=== PATIENT | female | born 2000 | race Hispanic/Latino ===

== ENCOUNTER 2023-02-11 13:36 | Emergency (ER) | payer SELFPAY ==
--- OUTSIDE RECORDS SUMMARY | 2023-02-11 13:40 | XMS REPORT | Continuity of Care Document ---
:2002 Author Organization [facility] t Address [address] [facility]. [address] [place] [address] Care Team Providers Name Role Phone G_Nilo Attending Clinician Unavailable PATEL_NILESH Attending Clinician Unavailable JUILAN PERSAUD Attending Clinician Unavailable IHDE_G Attending Clinician Unavailable ANDIE DRISCOLL Attending Clinician Unavailable JAZIEL PHILLIPS Attending Clinician Unavailable JAZIEL CORCORAN Attending Clinician Unavailable Leia Borges MD Attending Clinician MARIA ISABEL PANIAGUA Attending Clinician Unavailable JYOTSNA MORA Attending Clinician Unavailable KIANNA MERRILL Attending Clinician Unavailable Raju_P Attending Clinician Unavailable RICARDO ROA Attending Clinician Unavailable Mickey Amado Attending Clinician Unavailable SHANI NICOLE Attending Clinician Unavailable LEIA BORGES Admitting Clinician Unavailable G_Pappakylah Admitting Clinician Unavailable PATEL_NILESH Admitting Clinician Unavailable IHDE_G Admitting Clinician Unavailable ANDIE DRISCOLL Admitting Clinician Unavailable JAZIEL CORCORAN Admitting Clinician Unavailable Leia Borges MD Admitting Clinician Raju_P Admitting Clinician Unavailable Mickey Amado Admitting Clinician Unavailable Payers Payer Name Policy Type Policy Number Effective Date Expiration Date Kylah burciaga [facility] [id number] 2019 CHOICE MEDICAID 00:00:00 [facility] [id number] 2019 CHOICE (MEDICAID 00:00:00 REPLACEMENT - HMO) [facility] [id number] 2019 CHOICE (HMO) 00:00:00 [place] - [id number] [facility] - TRADITIONAL [facility] [place] [id number] [facility] (MED[place]ID [place]) [place] [facility] - [id number] [facility] ([facility]) Problems Condition Condition Condition Status Onset Resolution Last Treating Co mments Source Name Details Category Date Date Treatment Clinician Date Mixed Mixed Problem Active 2019-04 [place] anxiety Anxiety 0-14 da and and 00:00: Medical depressive Depressive 00 Gr oup disorder Disorder Acute Acute Disease Active Univers left-sided left-sided 9-17 it y of low back low back 00:00: [place] pain pain 00 Medical without without Branch sciatica sciatica 36 weeks 36 weeks Disease Active Unive rs gestation gestation 9-17 ity of of of 00:00: [place] 00 [facility] Acute Acute Disease Active Univers cystitis cystitis 9-17 ity of without without 00:00: [place] hematuria hematuria 00 [facility] Generalize Generalize Problem Active M [place] d anxiety d Anxiety 3-23 da disorder Disorder 00:00: Medica l 00 Group Allergies, Adverse Reactions, Alerts Allergy Allergy Status Severity Reaction(s) Onset Inactive Treating Comm ents Source Name Type Date Date Clinician NO KNOWN Drug Active Univers ALLERGIE Class ity of S [place] [facility] Social History Social Habit Start Date Stop Date Quantity Comments Source ASSERTION 2019-05-15 University of 00:00:00 [facility] Sex Assigned At Universit y of [place] [facility] Tobacco use and 2020-01-12 2020-01-12 Never used Universit y of exposure 00:00:00 00:00:00 [facility] Alcohol intake 2020-01-12 2020-01-12 Current University 00:00:00 00:00:00 non-drinker of [facility] alcohol [place] (finding) Smoking Status Start Date Stop Date Source Never smoker [facility] Medications Ordered Filled Start Stop Current Ordering Indication Dosage Frequency Signature Comments Components Source Medication Medication Date Date Medication? Clinician (SIG) Name Name FENTanyl PF 2019- No 50ug 50 mcg, Un jesus (SUBLIMAZE 01-11 Slow IV ity o f (PF)) 13:45: 12:55 Push, [place] injection 00 :00 ONCE, 1 Medical 50 mcg dose, [facility] Branch 01/12/20 at 0845, Routine acetaminoph 2019- Yes 650mg 650 mg, Un jesus en 01-11 Oral, ity of (TYLENOL) 12:42: Q6HPRN, [place] tablet 650 31 Starting Medic al mg [facility] 01/12/20 at 0742, Until Discontinu ed, Routine, Pain (scale 1-3) cefTRIAXone 2019- Yes 1000mg 1,000 mg, Univers (ROCEPHIN) 01-11 IV ity of 1,000 mg in 12:15: Piggyback, [place] NaCl 0.9% 00 Q24H ABX, Medic al (NS) 50 mL First dose [facility] MINI-BAG on Maggy 01/12/20 at 0715, Until Discontinu ed, 50 mL
R nigel for Anti-Infec tive: Empiric Therapy for Suspected Infection< br>Empiric Therapy Site: Urine
D uration of therapy: 72 hours lactated 2019-0 Yes 1000mL at 125 Unive rs ringers IV 01-11 mL/hr, ity of infusion 12:15: 1,000 mL, [place] 1[place]000 [place] 00 IV Medical Infusion, Branch CONTINUOUS , Starting Maggy 01/12/20 at 0715, Until Discontinu ed, Routine Nitrofurant 2019- 2020- No [id number] 100mg Take 1 Univers oin&Nit. 01-11 10-08 capsule by ity of Macrocryst 00:00: 04:59 mouth [place] 100 mg 00 :00 daily for Medical capsule 20 days. Branch Nitrofurant 2019- No [id number] 100mg Take 1 Univers oin&Nit. 01-11 capsule by ity of [place] 00:00: 04:59 mouth 2 Joey as 100 mg 00 :00 (two) Medical capsule times Branch daily for 7 days. cyclobenzap 2019- No 5mg Take 1 Uni vers rine 5 mg 06-11 tablet by ity of tablet 00:00: 00:00 mouth 3 [place] 00 :00 (three) Medical times Branch daily. naproxen 2019- No 250mg Take 1 Unive rs 250 mg 06-11 tablet by ity of tablet 00:00: 00:00 mouth 2 [place] 00 :00 (two) Medical times Branch daily with meals. Sprintec Sprintec No Sprintec [place] (28) 0.25 (28) 0.25 (28) 0.25 da mg-35 mcg mg-35 mcg mg-35 mcg Medical tablet Take tablet Take tablet Group 1 tablet 1 tablet Take 1 every day every day tablet by oral by oral every day route. route. by oral route. Iron Iron No Iron [place] (ferrous (ferrous (ferrous da sulfate) sulfate) sulfate) Med ical Group Wellbutrin Wellbutrin No 1 Q1D Wellbutrin [place] XL 150 mg XL 150 mg XL 150 mg da 24 hr 24 hr 24 hr Medical tablet, tablet, tablet, Group extended extended extended release release release Take 1 Take 1 Take 1 tablet tablet tablet every day every day every day by oral by oral by oral route. route. route. sulfamethox sulfamethox No sulfametho [place] azole 800 azole 800 xazole 800 da mg-trimetho mg-trimetho mg-trimeth Medical prim 160 mg prim 160 mg oprim 160 Group tablet tablet mg tablet acyclovir acyclovir No acyclovir [place] 400 mg 400 mg 400 mg da tablet TAKE tablet TAKE tablet Medical 1 TABLET BY 1 TABLET BY TAKE 1 Group MOUTH THREE MOUTH THREE TABLET BY TIMES DAILY TIMES DAILY MOUTH FOR HERPES FOR HERPES THREE TIMES DAILY FOR HERPES Ativan 1 mg Ativan 1 mg No 1 Q8H Ativan 1 [place] tablet Take tablet Take mg tablet da 1 tablet 1 tablet Take 1 Medic al every 8 every 8 tablet Group hours by hours by every 8 oral route oral route hours by as needed. as needed. oral route as needed. doxycycline doxycycline No doxycyclin [place] hyclate 100 hyclate 100 e hyclate da mg capsule mg capsule 100 mg M edical TAKE 1 TAKE 1 capsule Group CAPSULE BY CAPSULE BY TAKE 1 MOUTH EVERY MOUTH EVERY CAPSULE BY 12 HOURS 12 HOURS MOUTH FOR FOR EVERY 12 INFECTION INFECTION HOURS FOR INFECTION Iron Iron No Iron [place] (ferrous (ferrous (ferrous da sulfate) sulfate) sulfate) Med ical Group metronidazo metronidazo No metronidaz [place] le 500 mg le 500 mg ole 500 mg da tablet TAKE tablet TAKE tablet Medical 1 TABLET BY 1 TABLET BY TAKE 1 Group MOUTH TWICE MOUTH TWICE TABLET BY DAILY DAILY MOUTH TWICE DAILY paroxetine paroxetine No 1 Q1D paroxetine [place] 20 mg 20 mg 20 mg da tablet Take tablet Take tablet Medical 1 tablet 1 tablet Take 1 Group every day every day tablet by oral by oral every day route. route. by oral route. Wellbutrin Wellbutrin No 1 Q1D Wellbutrin [place] XL 150 mg XL 150 mg XL 150 mg da 24 hr 24 hr 24 hr Medical tablet, tablet, tablet, Group extended extended extended release release release Take 1 Take 1 Take 1 tablet tablet tablet every day every day every day by oral by oral by oral route. route. route. Ativan 1 mg Ativan 1 mg No 1 Q8H Ativan 1 [place] tablet Take tablet Take mg tablet da 1 tablet 1 tablet Take 1 Medic al every 8 every 8 tablet Group hours by hours by every 8 oral route oral route hours by as needed. as needed. oral route as needed. escitalopra escitalopra No escitalopr [place] m 10 mg m 10 mg am 10 mg da tablet tablet tablet Medical Group famotidine famotidine No famotidine [place] 20 mg 20 mg 20 mg da tablet tablet tablet Medical Group pantoprazol pantoprazol No pantoprazo [place] e 40 mg e 40 mg le 40 mg da tablet,rebecca tablet,rebecca tablet,del Medical yed release yed release ayed G roup release sertraline sertraline No sertraline [place] 100 mg 100 mg 100 mg da tablet Take tablet Take tablet Medical 1 tablet 1 tablet Take 1 Group every day every day tablet by oral by oral every day route. route. by oral route. sertraline sertraline No sertraline [place] 25 mg 25 mg 25 mg da tablet Take tablet Take tablet Medical 1 tablet 1 tablet Take 1 Group every day every day tablet by oral by oral every day route for route for by oral 30 days. 30 days. route for 30 days. sertraline sertraline No sertraline [place] 50 mg 50 mg 50 mg da tablet Take tablet Take tablet Medical 3 tablets 3 tablets Take 3 July up every day every day tablets by oral by oral every day route. route. by oral route. Ativan 1 mg Ativan 1 mg No 1 Q8H Ativan 1 [place] tablet Take tablet Take mg tablet da 1 tablet 1 tablet Take 1 Medic al every 8 every 8 tablet Group hours by hours by every 8 oral route oral route hours by as needed. as needed. oral route as needed. Vital Signs Vital Name Observation Time Observation Value Comments Source BP Diastolic 2022-10-14 00:00:00 76 mm[facility]Hg] [facility] Height 2022-10-14 00:00:00 62 [in_i] [facility] BMI (Body Mass 2022-10-14 00:00:00 34.3 kg/m2 [facility] Medical Index) Group BP Systolic 2022-10-14 00:00:00 122 mm[Hg] [facility] Body Weight 2022-10-14 00:00:00 187.6 [lb_av] [facility] BP Diastolic 2022-05-06 00:00:00 78 mm[Hg] [facility] Height 2022-05-06 00:00:00 62 [in_i] [facility] BMI (Body Mass 2022-05-06 00:00:00 35 kg/m2 [facility] Medical Index) Group BP Systolic 2022-05-06 00:00:00 108 mm[Hg] [facility] Body Weight 2022-05-06 00:00:00 191.3 [lb_av] [facility] BP Diastolic 2020-07-05 00:00:00 60 mm[Hg] [facility] Height 2020-07-05 00:00:00 62 [in_i] [facility] BMI (Body Mass 2020-07-05 00:00:00 37.3 kg/m2 [facility]) Group BP Systolic 2020-07-05 00:00:00 120 mm[Hg] [facility] Body Weight 2020-07-05 00:00:00 204 [lb_av] [facility] BP Diastolic 2020-03-16 00:00:00 84 mm[Hg] [facility] Height 2020-03-16 00:00:00 62 [in_i] [facility] BMI (Body Mass 2020-03-16 00:00:00 37.4 kg/m2 [facility]) Group BP Systolic 2020-03-16 00:00:00 130 mm[Hg] [facility] Body Weight 2020-03-16 00:00:00 204.6 [lb_av] [facility] BP Diastolic 2020-03-02 00:00:00 76 mm[Hg] [facility] Height 2020-03-02 00:00:00 62 [in_i] [facility] BMI (Body Mass 2020-03-02 00:00:00 37.7 kg/m2 [facility]) Group BP Systolic 2020-03-02 00:00:00 119 mm[Hg] [facility] Body Weight 2020-03-02 00:00:00 206 [lb_av] [facility] BP Diastolic 2020-02-07 00:00:00 80 mm[Hg] [facility] Height 2020-02-07 00:00:00 62 [in_i] [facility] BMI (Body Mass 2020-02-07 00:00:00 38 kg/m2 [facility]) Group BP Systolic 2020-02-07 00:00:00 130 mm[Hg] [facility] Body Weight 2020-02-07 00:00:00 207.7 [lb_av] [facility] Heart rate 2020-01-12 16:30:00 85 /min [facility] ty [facility] [place] [facility] Oxygen saturation in 2020-01-12 16:30:00 100 /min [facility] Arterial blood by [facility] Pulse oximetry Branch Systolic blood 2020-01-12 16:00:00 133 mm[Hg] Seth oliveira of pressure [facility] Diastolic blood 2020-01-12 16:00:00 81 mm[Hg] Unive rsity of pressure [facility] Body temperature 2020-01-12 12:10:00 36.89 Shazia Univ ersity [facility] Respiratory rate 2020-01-12 12:10:00 16 /[facility] 2020-01-12 10:21:00 157.5 cm Universi ty of [place] [facility] Body weight 2020-01-12 10:21:00 99.791 kg Universi ty [facility] BMI 2020-01-12 10:21:00 40.24 kg/m2 Universi ty [facility] Heart rate 2020-01-12 16:30:00 85 /min Universi ty [facility] Oxygen saturation in 2020-01-12 16:30:00 100 /min [facility] Arterial blood by [facility] Pulse oximetry Branch Systolic blood 2020-01-12 16:00:00 133 mm[Hg] Univer sity of pressure [facility] Diastolic blood 2020-01-12 16:00:00 81 mm[Hg] Unive rsity of pressure [facility] Body temperature 2020-01-12 12:10:00 36.89 [facility] 2020-01-12 12:10:00 16 /min [facility] height 2020-01-12 10:21:00 157.5 cm Universi ty of [place] [facility] Body weight 2020-01-12 10:21:00 99.791 kg Universi ty [facility] BMI 2020-01-12 10:21:00 40.24 kg/m2 Universi ty [facility] BP Diastolic 2020-01-06 00:00:00 84 mm[Hg] [facility] Height 2020-01-06 00:00:00 62 [in_i] [facility] BMI (Body Mass 2020-01-06 00:00:00 40.3 kg/m2 [facility] Group BP Systolic 2020-01-06 00:00:00 120 mm[Hg] [facility] Body Weight 2020-01-06 00:00:00 220.6 [lb_av] [facility] BP Diastolic 2019-12-14 00:00:00 73 mm[Hg] [facility] Height 2019-12-14 00:00:00 62 [in_i] [facility] BMI (Body Mass 2019-12-14 00:00:00 40.4 kg/m2 [facility] BP Systolic 2019-12-14 00:00:00 126 mm[Hg] [facility] Body Weight 2019-12-14 00:00:00 220.8 [lb_av] [facility] BP Diastolic 2019-12-12 00:00:00 88 mm[Hg] [facility] Height 2019-12-12 00:00:00 62 [in_i] [facility] BMI (Body Mass 2019-12-12 00:00:00 40.2 kg/m2 [facility] Group BP Systolic 2019-12-12 00:00:00 130 mm[Hg] [facility] Body Weight 2019-12-12 00:00:00 219.8 [lb_av] [facility] BP Diastolic 2019-10-18 00:00:00 68 mm[Hg] [facility] Height 2019-10-18 00:00:00 62 [in_i] [facility] BMI (Body Mass 2019-10-18 00:00:00 36.6 kg/m2 [facility] BP Systolic 2019-10-18 00:00:00 128 mm[Hg] [facility] Body Weight 2019-10-18 00:00:00 200.2 [lb_av] [facility] BP Diastolic 2019-09-20 00:00:00 63 mm[Hg] [facility] Height 2019-09-20 00:00:00 62 [in_i] [facility] BMI (Body Mass 2019-09-20 00:00:00 36.3 kg/m2 [facility] Group BP Systolic 2019-09-20 00:00:00 114 mm[Hg] [facility] Body Weight 2019-09-20 00:00:00 198.2 [lb_av] [facility] Procedures Procedure Date / Time Performing Clinician Source Performed US RETROPERITONEAL 2020-01-12 14:00:00 Fish, Leia [facility] [place] COMPLETE Medical Branch COMP. METABOLIC PANEL 2020-01-12 11:15:00 Leia Borges [facility] ([id number]) Medical Branch CBC WITH DIFF 2020-01-12 11:15:00 Jony Leia Fortuna o f [facility] ADC CLC OR LCC ONLY - WET 2020-01-12 11:15:[address] [facility] COVID-19 (ID NOW RAPID 2020-01-12 10:17:[address] [facility] TESTING) Medical Branch US, obstetric, limited 2020-01-06 00:00:00 [facility] ULTRASOUND REPEAT 2019-12-12 00:00:00 [facility] unlisted imaging order 2019-11-30 00:00:00 [facility] unlisted imaging order 2019-10-18 00:00:00 [facility] ULTRASOUND, 2019-08-22 00:00:00 [facility] UTERUS REAL TIME WITH Group IMAGE DOC, AND MATERNAL EVAL PLUS DETAILED ANATOMIC EXAMINATION, TRANSABDOMINAL APPROACH; SINGLE OR FIRST GESTATION US, obstetric, limited 2019-07-18 00:00:00 [facility] Plan of Care Planned Activity Planned Date Details Comments Source Diagnostic Test 2022-05-06 test, [facility] Pending 00:00:00 urine [code = Group test, urine] Instructions [facility] Encounters Start End Encounter Admission Attending Care Care Encounter Source Date/Time Date/Time Type Type Clinicians Facility Department ID 2021-02-22 Outpatient P [facility] [id number] Univers 18:06:[facility] 2021-02-22 Outpatient P [facility] [id number] Univers 17:58:52 [facility] 2023-01-14 2023-01-14 Outpatient G_Pappas [facility]G [id number] [place] 00:00:00 00:00:00 0920 [facility] 2022-12-11 2022-12-11 Outpatient G_Pappas MMG MMG [id number] [place] 00:00:00 00:00:00 0817 [facility] 2022-11-06 2022-11-06 Outpatient G_Pappas MMG MMG [id number] [place] 00:00:00 00:00:00 0713 [facility] 2022-10-14 2022-10-14 Outpatient G_Pappas MMG MMG [id number] [place] 00:00:00 00:00:00 0620 [facility] 2022-10-14 2022-10-14 Nathalie MMG [place] - [id number] M atagor 00:00:00 00:00:[address] [facility]-: [address] [address] , Ph. [phone] 2022-06-06 2022-06-06 Outpatient PATEL_NILES [facility] [id number] [place] 00:00:00 00:00:00 [facility] [address] [facility] 2022-05-21 2022-05-21 Emergency ER HUNG [facility] [id number] [place] 12:53:00 14:30:00 JULIAN -[id number] [facility] 2022-05-16 2022-05-16 Outpatient PATEL_NILES [facility] [id number] [place] 00:00:00 00:00:00 H [id number] [facility] 2022-05-06 2022-05-06 Outpatient G_Pappas MMG [facility] [id number] [place] 00:00:00 00:00:00 0110 [facility] 2022-05-06 2022-05-06 Jaziel MM [place] - [id number] M atagor 00:00:00 00:00:00 Discovery alexander Corcoran MD: [address] [place] [address] , Ph. [phone] 2020-11-02 2020-11-02 [place] [id number] [place] 12:21:00 12:21:00 0709 [facility] 2020-10-31 2020-10-31 Outpatient IHDE_G MMG MMG [id number] [place] 02:57:00 02:57:00 0707 [facility] 2020-07-05 2020-07-05 Enrique IHDE_G [place]G [place] - [id number] [place] 00:00:00 00:00:00 Jerome Schmidt 0311 alexander Khalil MD: [address], [place] [address] , Ph. [phone] 2020-06-21 2020-06-22 Inpatient ER AMERICO, [facility] [id number] [place] 11:54:00 14:25:00 ANDIE -[id number] [facility] 2020-06-20 2020-06-20 Emergency ER PHILLIPS, [facility] [id number] [place] 09:16:00 10:39:00 JAZIEL -[id number] [facility] 2020-04-05 2020-04-05 Outpatient G_Pappas MMG MMG [id number] [place] 05:22:00 05:22:00 1210 da [facility] 2020-03-16 2020-03-16 Jaziel G_[place]appas MMG [place] - [id number] [place] 00:00:00 00:00:00 Discovery Nilo 1120 alexander MD: [address] [place] [address] - [address], [place] [address] , Ph. [phone] 2020-03-14 2020-03-14 Outpatient G_Pappas MMG MMG [id number] [place] 02:23:00 02:23:00 1118 [facility] 2020-03-07 2020-03-07 Outpatient G_Pappas MMG MMG [id number] [place] 12:32:00 12:32:00 1111 [facility] 2020-03-03 2020-03-03 Outpatient G_Pappas MMG MMG [id number] [place] 05:58:00 05:58:00 1107 [facility] 2020-03-02 2020-03-02 Jaziel G_[place]appas MMG [place] - [id number] [place] 00:00:00 00:00:00 Discovery Nilo 1106 alexander MD: [address] [facility] [address], [place] [address] , Ph. [phone] 2020-02-22 2020-02-22 Outpatient G_Pappas MMG [facility] [id number] [place] 04:32:00 04:32:00 1028 da [facility] 2020-02-07 2020-02-07 Maria Isabelmolly Baconn G_[place]as MMG [place] - 2019 [place] 00:00:00 00:00:00 Discovery Irvin 1013 da WHNP: [address] [facility] [address], [place] [address] , Ph. [phone] 2020-02-06 2020-02-06 Outpatient G_Pappas MMG [facility] 2019 [place] 02:11:00 02:11:00 1012 [facility] 2020-02-04 2020-02-04 Outpatient G_Pappas MMG MMG [id number] [place] 01:03:00 01:03:00 1010 Medical Group 2020-01-20 2020-01-20 Outpatient G_Pappas MMG G [id number] [place] 12:10:00 12:10:00 0925 Medical Group 2020-01-15 2020-01-16 Inpatient ER NILO, [facility] MOB [id number] [place] 08:43:00 09:55:00 [id number] [facility] 2020-01-12 2020-01-12 [facility] Leia Borges [facility] [id number] 05:01:00 13:25:00 Encounter [place] [id number] [place] [id number] [place] [id number] [facility] 2020-01-12 2020-01-12 [facility] Jony [facility] [id number] [facility] 05:01:00 13:25:00 Encounter Freeman [id number] ity of [place] [id number] [facility] [id number] [place] [address] Branch 2020-01-12 2020-01-12 Outpatient G_Pappas MMG MMG [id number] [place] 06:32:00 06:32:00 0917 [facility] 2020-01-06 2020-01-06 Outpatient KARINA PANIAGUA, [facility] [id number] [place] 15:03:00 15:03:00 MARIA ISABEL [id number] [facility] 2020-01-06 2020-01-06 Maria Isabel Carroll G_Pappas MMG [place] [id number] [place] 00:00:00 00:00:00 Discovery Irvin 11 da WHNP: [address] [place] [address] , Ph. [phone] 2020-01-03 2020-01-03 Emergency ER MORGAN, [facility] [id number] [place] 01:21:00 01:40:00 JYOTSNA [id number] [facility] 2019-12-15 2019-12-15 Outpatient G_Pappas MMG MMG [id number] [place] 08:58:00 08:58:00 0820 [facility] 2019-12-14 2019-12-14 [place] [id number] [place] 00:00:00 00:00:00 Discovery Nilo 0819 alexander MD: [address] [place] [address] , Ph. [phone] 2019-12-12 2019-12-12 Jaziel G_[place]appas MMG [place] - [id number] [place] 00:00:00 00:00:00 Discovery Nilo 0817 alexander MD: [address] [place] [address] , Ph. [phone] 2019-11-04 2019-11-04 Outpatient G_Pappas MMG MMG [id number] [place] 12:11:00 12:11:00 0710 [facility] 2019-10-19 2019-10-19 Outpatient G_Pappas MMG MMG [id number] [place] 08:01:00 08:01:00 06 [facility] 2019-10-18 2019-10-18 Jaziel G_[place]appas MMG [place] - [id number] [place] 00:00:00 00:00:00 Discovery Nilo 23 alexander MD: [address] [place] [address] , Ph. [phone] 2019-10-07 2019-10-07 Outpatient G_Pappas MMG MMG [id number] [place] 06:42:00 06:42:00 0612 [facility] 2019-09-21 2019-09-21 Outpatient G_Pappas MMG MMG [id number] [place] 11:15:00 11:15:00 0527 [facility] 2019-09-20 2019-09-20 Maria Isabel Carroll G_[facility] MMG [id number] [place] 00:00:00 00:00:00 Discovery Irvin 525 da WHNP: [address] [place] [address] , Ph. [phone] 2019-09-17 2019-09-17 Emergency ER DESIRAE, [facility] [id number] [place] 11:25:00 12:14:00 KIANNA [id number] [facility] 2019-08-22 2019-08-22 Maryam G_Pappas MMG [place] - [id number] [place] 00:00:00 00:00:00 Siddharth Schmidt 0427 alexander [facility] MD: [address] [place] [address] , Ph. [phone] 2019-07-18 2019-07-18 Outpatient EL NILO, [facility] [id number] [place] 15:18:00 15:18:00 JAZIEL [id number] [facility] [facility] 2019-07-18 2019-07-18 Jaziel [place] [facility] - [id number] [place] 00:00:00 00:00:00 [facility] Nilo 0323 alexander MD: Latrice [facility] [place] - [address], [place] [address] , Ph. [phone] 2019-06-27 2019-06-27 Outpatient Raju_P [facility] [id number] [place] 05:38:00 05:38:00 0302 [facility] 2019-06-21 2019-06-21 Outpatient Raju_P [facility] [id number] [place] 12:52:00 12:52:00 0225 [facility] 2019-06-13 2019-06-14 Emergency ER CRISPIN, [facility] [id number] [place] 23:46:00 05:13:00 RICARDO -[id number] [facility] 2018-02-04 2018-02-06 Inpatient ER Amado, [facility] [id number] [place] 10:34:00 13:33:00 Mickey -[id number] [facility] 2018-02-03 2018-02-03 Emergency ER MALENAE, [facility] [id number] [place] 20:25:00 21:10:00 JYOTSNA -[id number] [facility] 2018-01-26 2018-01-26 Emergency ER BONNIE, [facility] [id number] [place] 12:10:00 15:39:00 SHANI -[id number] [facility] Results Test Description Test Time Test Comments Results Result Comments Source test, urine 2022-05-06 14:35:00 Test Item Value Reference Range Interpretation Comme nts Test (test code = Test) negative [facility] W Auto Differential panel - [id number] 03:30:00 Test Item Value Reference Range Interpretation Comments white blood count (test code = 17.0 K/uL 4.0-11.5 H white blood count) red blood count (test code = red 4.72 M/uL 3.80-5.20 blood count) hemoglobin (test code = 13.8 g/dL 12-16 hemoglobin) hematocrit (test code = 43.4 % 34.0-50.0 hematocrit) MCV [Entitic volume] (test code = 91.9 fL 78-102 17357-2) mean corpuscular hemoglobin (test 29.2 pg 26.2-33.4 code = mean corpuscular hemoglobin) mean corpuscular HGB conc (test 31.8 g/dL 32-36 L code = mean corpuscular HGB conc) red cell distribution width (test 13.3 % 11.5-14.0 code = red cell distribution width) platelet count (test code = 281 K/uL 165-450 platelet count) mean platelet volume (test code = 9.8 fL 9.4-12.6 mean platelet volume) Segmented neutrophils/100 83.9 % 44.4-80.1 H leukocytes in Blood (test code = 33048-8) Immature granulocytes [#/volume] 0.1 K/uL 0.0-0.03 H in Blood (test code = 69050-5) lymphocyte% (test code = 10.3 % 10.0-50.0 lymphocyte%) mono % (test code = mono %) 5.0 % 3.0-6.0 eos % (test code = eos %) 0.1 % 0.0-3.0 Basophils/100 leukocytes in 0.2 % 0.0-1.0 Unspecified specimen (test code = 56384-7) Band form neutrophils [#/volume] 14.23 K/uL 1.5-9.5 H in Blood (test code = 63138-1) Lymphocytes [#/volume] in 1.7 K/uL 1.1-6.0 Unspecified specimen by Automated count (test code = 93051-4) mono # (test code = mono #) 0.85 K/uL 0.24-0.86 eos # (test code = eos #) 0.02 K/uL 0.04-0.36 L basophil # (test code = basophil 0.03 K/uL 0.01-0.08 #) NRBC% (test code = NRBC%) 0 /100 WBC 0-0.2 NRBC# (test code = NRBC#) 0 K/uL [facility]Different[facility] panel, method unspecified - [id number] 03:30:00NeutrophilsBandLymphocyteAtypical LymphMonocyteEosinophilBasophilAbs Neutrophil Count (Man)Abs LymphCount (Man)Abs Monocyte Count (Man)Abs Eosinophil Count (Man)Abs Basophil Count (Man)Platelet EstimatePlatelet MorphologyPoikilocytosisAnisocytosisSchistocytesTarget CellsToxic GranulationBurr CellsToxic VacuolationDifferential comment-[facility]Comprehensive [facility] 2000 panel - Serum or [id number] 03:30:00 Test Item Value Reference Range Interpretation Comments glucose (test code = glucose) 140 mg/dL 60-100 H Urea nitrogen [Mass/volume] in 5 mg/dL 5-18 Serum or Plasma (test code = 3094-0) osmolality calculated,serum (test 268 mOsm/kg 280-300 L code = osmolality calculated,serum) creatinine (test code = 0.6 mg/dL 0.57-0.87 creatinine) glomerular filtration rate (test >60.00 code = glomerular filtration rate) Urea nitrogen/Creatinine [Mass 8.3 12-20 L Ratio] in Serum or Plasma (test code = 3097-3) sodium level (test code = sodium 134 mmol/L 135-145 L level) Potassium [Moles/volume] in Body 4.4 mmol/L 3.5-5.2 fluid (test code = 2821-7) chloride level (test code = 101 mmol/L 98-108 chloride level) CO2 (test code = CO2) 23 mmol/L 21-32 anion gap (test code = anion gap) 14.4 mEq/L 12-20 calcium level (test code = 9.0 mg/dL 8.4-10.2 calcium level) total protein (test code = total 7.2 g/dL 6.0-8.0 protein) albumin (test code = albumin) 3.9 g/dL 3.2-4.5 globulin (test code = globulin) 3.3 gm/dL A/G ratio (test code = A/G ratio) 1.2 >1.0 bilirubin,total (test code = 1.0 mg/dL 0.0-1.0 bilirubin,total) AST/SGOT (test code = AST/SGOT) 159 U/L 15-32 Alanine aminotransferase 532 U/L 0-33 H [Enzymatic activity/volume] in Serum or Plasma (test code = 1742-6) Alkaline phosphatase [Enzymatic 217 U/L 0-187 H activity/volume] in Serum or Plasma (test code = 6768-6) [facility]antsLipase [Enzymatic activity/volume] in Serum or Plasma 2020-06-22 03:30:00 Test Item Value Reference Range Interpretation Comments lipase (test code = lipase) 617 U/L 13-60 H [facility] W Auto Differential panel - [id number] 03:15:00 Test Item Value Reference Range Interpretation Comments white blood count (test code = 13.9 K/uL 4.0-11.5 H white blood count) red blood count (test code = red 3.67 M/uL 3.80-5.20 L blood count) hemoglobin (test code = 11.1 g/dL 12-16 L hemoglobin) hematocrit (test code = 33.9 % 34.0-50.0 L hematocrit) MCV [Entitic volume] (test code = 92.4 fL 78-102 07538-4) mean corpuscular hemoglobin (test 30.2 pg 26.2-33.4 code = mean corpuscular hemoglobin) mean corpuscular HGB conc (test 32.7 g/dL 32-36 code = mean corpuscular HGB conc) red cell distribution width (test 14.6 % 11.5-14.0 H code = red cell distribution width) platelet count (test code = 218 K/uL 165-450 platelet count) mean platelet volume (test code = 10.2 fL 9.4-12.6 mean platelet volume) Segmented neutrophils/100 75.4 % 44.4-80.1 leukocytes in Blood (test code = 76737-9) Immature granulocytes [#/volume] 0.1 K/uL 0.0-0.03 H in Blood (test code = 96684-1) lymphocyte% (test code = 18.0 % 10.0-50.0 lymphocyte%) mono % (test code = mono %) 5.7 % 3.0-6.0 eos % (test code = eos %) 0.3 % 0.0-3.0 Basophils/100 leukocytes in 0.1 % 0.0-1.0 Unspecified specimen (test code = 31639-7) Band form neutrophils [#/volume] 10.50 K/uL 1.5-9.5 H in Blood (test code = 63832-2) Lymphocytes [#/volume] in 2.5 K/uL 1.1-6.0 Unspecified specimen by Automated count (test code = 48410-4) mono # (test code = mono #) 0.79 K/uL 0.24-0.86 eos # (test code = eos #) 0.04 K/uL 0.04-0.36 basophil # (test code = basophil 0.02 K/uL 0.01-0.08 #) NRBC% (test code = NRBC%) 0 /100 WBC 0-0.2 NRBC# (test code = NRBC#) 0 K/uL [facility] W Auto Differential panel - [id number] 07:03:00 Test Item Value Reference Range Interpretation Comments white blood count (test code = 11.7 K/uL 4.0-11.5 H white blood count) red blood count (test code = red 4.17 M/uL 3.80-5.20 blood count) hemoglobin (test code = 12.7 g/dL 12-16 hemoglobin) hematocrit (test code = 37.5 % 34.0-50.0 hematocrit) MCV [Entitic volume] (test code = 89.9 fL 78-102 67015-9) mean corpuscular hemoglobin (test 30.5 pg 26.2-33.4 code = mean corpuscular hemoglobin) mean corpuscular HGB conc (test 33.9 g/dL 32-36 code = mean corpuscular HGB conc) red cell distribution width (test 14.2 % 11.5-14.0 H code = red cell distribution width) platelet count (test code = 260 K/uL 165-450 platelet count) mean platelet volume (test code = 10.0 fL 9.4-12.6 mean platelet volume) Segmented neutrophils/100 75.0 % 44.4-80.1 leukocytes in Blood (test code = 85001-3) Immature granulocytes [#/volume] 0.1 K/uL 0.0-0.03 H in Blood (test code = 44867-0) lymphocyte% (test code = 18.5 % 10.0-50.0 lymphocyte%) mono % (test code = mono %) 5.4 % 3.0-6.0 eos % (test code = eos %) 0.5 % 0.0-3.0 Basophils/100 leukocytes in 0.2 % 0.0-1.0 Unspecified specimen (test code = 72752-1) Band form neutrophils [#/volume] 8.73 K/uL 1.5-9.5 in Blood (test code = 42731-1) Lymphocytes [#/volume] in 2.2 K/uL 1.1-6.0 Unspecified specimen by Automated count (test code = 65602-1) mono # (test code = mono #) 0.63 K/uL 0.24-0.86 eos # (test code = eos #) 0.06 K/uL 0.04-0.36 basophil # (test code = basophil 0.02 K/uL 0.01-0.08 #) NRBC% (test code = NRBC%) 0 /100 WBC 0-0.2 NRBC# (test code = NRBC#) 0 K/uL [facility]antsBlood type and Indirect antibody screen panel - Blood 2020-01-15 07:03:00 Test Item Value Reference Range Interpretation Comments Rh [Type] in Blood (test code = 4+ 27511-3) ABO and Rh group panel - Blood B positive (test code = 51381-4) [facility]antsReagin Ab [Presence] in Serum by [id number] 07:03:00 Test Item Value Reference Range Interpretation Comments Reagin Ab [Presence] in Serum by nonreactive nonreactive RPR (test code = 72764-7) [facility] InfantsHepatitis B virus surface Ag [Presence] in Serum 2020-01-15 07:03:00 Test Item Value Reference Range Interpretation Comments .hepatitis B surface antigen (test negative negative code = .hepatitis B surface antigen) [facility] InfantsUrinalysis complete panel - [id number] 05:49:00 Test Item Value Reference Range Interpretation Comments Color of Urine by Auto (test light yellow code = 58922-2) Appearance of Urine (test clear clear code = 5767-9) Glucose [Presence] in Urine negative negative by Automated test strip (test code = 69303-8) Bilirubin.total [Mass/volume] negative negative in Urine (test code = 1978-6) Ketones [Mass/volume] in negative negative Urine by Automated test strip (test code = 17767-1) Specific gravity of Urine by 1.008 1.003-1.030 Automated test strip (test code = 13244-0) blood urine (test code = =2 negative H blood urine) pH of Urine (test code = 6.500 5-9 2756-5) protein urine (UA) (test code negative negative = protein urine (UA)) Urobilinogen [Presence] in normal 0.2-1.0 Urine (test code = 57732-7) Nitrite [Presence] in Urine negative negative by Test strip (test code = 5802-4) Leukocyte esterase [Presence] =2 negative H in Urine by Automated test strip (test code = 98201-1) Erythrocytes [#/volume] in =1-5 0-5 Urine by Automated count (test code = 798-9) Leukocytes [#/area] in Urine =15-19 0-5 H sediment by Automated count (test code = 97713-3) Epithelial cells [Presence] =6-10 0-5 in Urine sediment by Light microscopy (test code = 17534-9) Bacteria identified in Urine small(1 none detect by Culture (test code = 630-4) Casts [#/area] in Urine =2-5 none detect sediment by Automated count (test code = 80403-5) urine culture added? (test already ordered code = urine culture added?) [facility]antsBacteria identified in Urine by [id number] 05:49:00Bacteria Ur [facility] 2020-01-12 14:32:53HISTORY: Flank pain. Look for kidney stones. TECHNIQUE: Both kidneys are evaluated in multiple planes with the patientin different positions. FINDINGS: RIGHT KIDNEY: Measures 10.8 x 5.5 x 4.4 cm with corticalthickness measuring up to 14-15 mm. No hydronephrosis or perinephric fluidcollection detected.Upper pole of the right kidney showed 2 small 5 to 6mm size cysts. LEFT KIDNEY: Measures 11.1 x 5.6 x 4.3 cm in size with cortical thicknessmeasuring up to 13 mm. ?No perinephric fluid collection. Quick look at the urinary bladder showed completely collapsed urinarybladder. CONCLUSIONS:1. Essentially normal bilateral renal ultrasound study.2. Incidental note of numerous small gallstones packing the lumen of thegallbladder with no associated sonographic signs of acute cholecystitis.Ncmb, Radiant Results Inft User - 01/12/2020 9:33 AM CDTHISTORY: Flank pain. Look for kidney stones.TECHNIQUE: Both kidneys are evaluated in multiple planes with the patientin different positions. FINDINGS: RIGHT KIDNEY:Measures 10.8 x 5.5 x 4.4 cm with corticalthickness measuring up to 14-15 mm. No hydronephrosis or perinephric fluidcollection detected. Upper pole of the right kidney showed 2 small 5 to 6mm size cysts.LEFT KIDNEY: Measures 11.1 x 5.6 x 4.3 cm in size with cortical thicknessmeasuring up to 13 mm. No p erinephric fluid collection.Quick look at the urinary bladder showed completely collapsed urinarybladder.CONCLUSIONS:1. Essentially normal bilateral renal ultrasound study.2. Incidental note of numerous small gallstones packing the lumen of thegallbladder with no associated sonographic signs of acute c holecystitis.[facility] AzleCOM. METABOLIC PANEL (68016) 2020-01-12 12:51:00 Test Item Value Reference Range Interpretation Comments NA (test code = 137 mmol/L 135-145 7561799558) K (test code = 3.8 mmol/L 3.5-5 5018312655) CL (test code = 108 mmol/L 98-108 0173766988) CO2 TOTAL (test code = 17 mmol/L 23-31 L 6178887173) AGAP (test code = 2-16 5231699681) BUN (test code = 8 mg/dL 7-23 1594330692) GLUCOSE (test code = 66 mg/dL 70-110 L 7568345540) CREATININE (test code = 0.60 mg/dL 0.5-1.04 1221740188) TOTAL BILI (test code = 0.8 mg/dL 0.1-1.1 5506504488) CALCIUM (test code = 9.4 mg/dL 8.6-10.6 9061325941) T PROTEIN (test code = 6.4 g/dL 6.3-8.2 3926476301) ALBUMIN (test code = 3.3 g/dL 3.5-5 L 2502124253) ALK PHOS (test code = 225 U/L 34-122 H 2079008606) ALTv (test code = 25 U/L 5-35 1742-6) AST(SGOT) (test code = 49 U/L 13-40 H 8819305980) JASON (test code = JASON) Association of Glomerular Filtration Rate (GFR) and Staging of Kidney Disease* + --+ --+ ------+| GFR (mL/min/1.73 m2) ?| With Kidney Damage ?| ?Without Kidney Damage+ --------+ --------+ +| ?>90 ?| ?Stage one ?| ? Normal ?+ ---+ ---+ -------+| ?60-89 ?| ?Stage two ?| ? Decreased GFR ? + --+ --+ ------+| ?30-59 ?| ?Stage three ?| ? Stage three ? + --+ --+ ------+| ?15-29 ?| ?Stage four ? | ? Stage four ?+ ---+ ---+ -------+| ?<15 (or dialysis) ? ?| ?Stage five ? | ? Stage five ?+ ---+ ---+ -------+ *Each stage assumes the associated GFR level has been in effect for at least three months. ?Stages 1 to 5, with or without kidney disease, indicate chronic kidney disease. Notes: Determination of stages one and two (with eGFR >59mL/min/1.73 m2) requires estimation of kidney damage for at least three months as defined by structural or functional abnormalities of the kidney, manifested by either:Pathological abnormalities or Markers of kidney damage (including abnormalities in the composition of the blood or urine or abnormalities in imaging tests). Lab Interpretation Abnormal (test code = 68316-6) [facility] CLC OR [facility] ONLY - WET [id number] 11:52:00 Test Item Value Reference Range Interpretation Comments Wet Prep (test code No Trichomonas vaginalis Bacteria = [id number]) present [facility] WITH [id number] 11:33:00 Test Item Value Reference Range Interpretation Comments WBC (test code = See_Comment [Automated 6690-2) message] The sy stem which generated this result transmitted reference range : 4.50 - 13.50 10*3/?L. The reference range was not used to interpret this result as normal/abnormal . RBC (test code = See_Comment [Automated 789-8) message] The sy stem which generated this result transmitted reference range : 4.10 - 5.10 10*6/?L. The reference range was not used to interpret this result as normal/abnormal . HGB (test code = 12.5 g/dL 12-16 718-7) HCT (test code = 37.1 % 36-45 4544-3) MCV (test code = 90.5 fL 78-95 787-2) MCH (test code = 30.5 pg 26-32 785-6) MCHC (test code = 33.7 g/dL 32-36 786-4) RDW-SD (test code = 47.8 fL 38.5-49 90683-8) RDW-CV (test code = 14.4 % 11.5-14 H 788-0) PLT (test code = See_Comment [Automated 777-3) message] The sy stem which generated this result transmitted reference range : 135 - 361 10*3/ ?L. The reference r yolie was not used to interpret this result as normal/abnormal . MPV (test code = 10.3 fL 9.4-13.3 56477-4) NRBC/100 WBC (test See_Comment [Automat ed code = 2257401246) message] The system which generated this result transmitted reference range : 0.0 - 10.0 /100 WBCs. The refer ence range was not u sed to interpret th is result as normal/abnormal . NRBC x10^3 (test code <0.01 See_Comment [Auto mated = 9198920656) message] The s ystem which generated this result transmitted reference range : 10*3/?L. The reference range was not used to interpret this result as normal/abnormal . GRAN MAT (NEUT) % 72.0 % (test code = 770-8) IMM GRAN % (test code 0.80 % = 3455226191) LYMPH % (test code = 20.1 % 736-9) MONO % (test code = 6.6 % 5905-5) EOS % (test code = 0.2 % 713-8) BASO % (test code = 0.3 % 706-2) GRAN MAT x10^3(ANC) 7.89 10*3/uL 1.5-10.3 (test code = 0329497680) IMM GRAN x10^3 (test 0.09 10*3/uL 0-0.06 H code = 7451190394) LYMPH x10^3 (test code 2.20 10*3/uL 0.7-7.4 = 731-0) MONO x10^3 (test code 0.72 10*3/uL 0-0.5 H = 742-7) EOS x10^3 (test code = <0.03 0-0.4 711-2) BASO x10^3 (test code 0.03 10*3/uL 0-0.1 = 704-7) Lab Interpretation Abnormal (test code = 67146-3) [facility]le[facility]OVID[facility] (ID NOW RAPID TESTING)2020-01-12 10:53:00 Test Item Value Reference Range Interpretation Comments SARS-CoV-2 Rapid ID NOW Not Detected Not Detected (test code = 41871-6) JASON (test code = JASON) ID NOW COVID-19 Assay is an isothermal nucleic acid amplification test intended for the qualitative detection of nucleic acid from SARS-CoV-2 viral RNA in nasopharyngeal (LUM[employer]PERATOR) specimens. It is used under Emergency Use Authorization (EUA) by FDA. The limit of detection (LOD) of the assay is 125 Genome Equivalents/mL. A positive result is indicative of the presence of SARS-CoV-2 RNA. ?Clinical correlation with patient history and other diagnostic information is necessary to determine patient infection status. A negative (Not Detected) result does not preclude SARS-CoV-2 infection. In patients with clinical symptoms and other tests that are consistent with SARS-CoV-2 infection, negative results should be treated as presumptive negative and a new specimen should be tested with alternative PCR molecular test. Invalid: Please collect a new specimen for repeat patient testing if clinically indicated. Lab Interpretation Normal (test code = 81842-9) [facility] AzleGlucose tolerance 3 hours panel - Serum or [id number] 13:20:00 Test Item Value Reference Range Interpretation Comments Results (test code = Fasting 74, 1 hr = Results) 163, 2 hr = 124 [facility] - Serum or Plasma 2019-12-15 13:20:00 Test Item Value Reference Range Interpretation Comments Results (test code = Fasting 74, 1 hr = Results) 163, 2 hr = 124 [facility] GroupGlucose [Mass/volume] in Serum or Plasma --1 hour post dose [id number] 11:47:00 Test Item Value Reference Range Interpretation Comments Results (test code = Results) 177 [facility] GroupGlucose [Mass/volume] in Serum or Plasma --1 hour post dose [id number] 11:47:00 Test Item Value Reference Range Interpretation Comments Results (test code = Results) 177 [facility] GroupGlucose [Mass/volume] in Serum or Plasma --1 hour post dose [id number] 11:47:00 Test Item Value Reference Range Interpretation Comments Results (test code = Results) 177 [facility]Urinal[facility] macro (dipstick) panel - [id number] 09:42:03 Test Item Value Reference Range Interpretation Comments Leukocytes (test code = Leukocytes) Small Nitrite (test code = Nitrite) negative Urobilinogen (test code = .2 Urobilinogen) Protein (test code = Protein) Negative pH (test code = pH) 7.0 Blood (test code = Blood) Negative Specific [place] (test code = 1.020 Specific [place]) Ketone (test code = Ketone) Negative Bilirubin (test code = Bilirubin) Negative Glucose (test code = Glucose) Negative Appearance (test code = Appearance) Clear Color (test code = Color) Yellow [facility] InfantsUrinalysis macro (dipstick) panel - [id number] 09:42:03 Test Item Value Reference Range Interpretation Comments Leukocytes (test code = Leukocytes) Small Nitrite (test code = Nitrite) negative Urobilinogen (test code = .2 Urobilinogen) Protein (test code = Protein) Negative pH (test code = pH) 7.0 Blood (test code = Blood) Negative Specific [place] (test code = 1.020 Specific [place]) Ketone (test code = Ketone) Negative Bilirubin (test code = Bilirubin) Negative Glucose (test code = Glucose) Negative Appearance (test code = Appearance) Clear Color (test code = Color) Yellow [facility]antsUrinalysis macro (dipstick) panel - [id number] 09:42:03 Test Item Value Reference Range Interpretation Comments Leukocytes (test code = Leukocytes) Small Nitrite (test code = Nitrite) negative Urobilinogen (test code = .2 Urobilinogen) Protein (test code = Protein) Negative pH (test code = pH) 7.0 Blood (test code = Blood) Negative Specific [place] (test code = 1.020 Specific [place]) Ketone (test code = Ketone) Negative Bilirubin (test code = Bilirubin) Negative Glucose (test code = Glucose) Negative Appearance (test code = Appearance) Clear Color (test code = Color) Yellow [facility]antsUrinalysis macro (dipstick) panel - [id number] 15:09:46 Test Item Value Reference Range Interpretation Comments Leukocytes (test code = Leukocytes) Small Nitrite (test code = Nitrite) negative Urobilinogen (test code = .2 Urobilinogen) Protein (test code = Protein) Negative pH (test code = pH) 7.0 Blood (test code = Blood) Negative Specific [place] (test code = 1.020 Specific [place]) Ketone (test code = Ketone) Negative Bilirubin (test code = Bilirubin) Negative Glucose (test code = Glucose) Negative Appearance (test code = Appearance) Clear Color (test code = Color) Yellow [facility]antsUrinalysis macro (dipstick) panel - [id number] 14:27:36 Test Item Value Reference Range Interpretation Comments Leukocytes (test code = Leukocytes) Negative Nitrite (test code = Nitrite) negative Urobilinogen (test code = .2 Urobilinogen) Protein (test code = Protein) Trace pH (test code = pH) 6.0 Blood (test code = Blood) Large Specific [place] (test code = 1.030 Specific [place]) Ketone (test code = Ketone) Moderate Bilirubin (test code = Bilirubin) Negative Glucose (test code = Glucose) Negative Appearance (test code = Appearance) Clear Color (test code = Color) Yellow [facility]antspregnancy test, [id number] 14:26:41 Test Item Value Reference Range Interpretation Comments Test (test code = positive Test) [facility]"
[2023-02-11 14:15] LABS: Specific Gravity 1.025 (1.005-1.030); Urine Bacteria None Seen /HPF (<20); Urine Bilirubin NEGATIVE (Negative); Urine Blood Negative (Negative); Urine Clarity Turbid (Clear); Urine Color Yellow (Yellow); Urine Glucose NEGATIVE (Negative); Urine Mucus Slight /HPF (None Seen); Urine Protein TRACE (Negative); Urine Urobilinogen Normal (Normal); Urine pH 7.5 (5.0-7.0)
[2023-02-11] MEDS ORDERED: NA CHLORIDE 0.9% 1,000 ML ONE (15:19)
[2023-02-11 15:21] LABS: Absolute Lymphocytes (CBC) 1.6 K/uL (0.7-4.9); Hematocrit 41.2 % (36.0-45.0); Lymphocytes % 11.7 % (15.3-44.8); MCV 90.9 fL (80-100); MPV 7.7 fL (7.6-11.3); Platelets 252 thou/uL (152-406); RBC Red Blood Cell Count 4.53 M/uL (3.86-4.86)
[2023-02-11 15:26] LABS: Albumin 3.9 g/dL (3.4-5.0); Bilirubin Total 0.9 mg/dL (0.2-1.0); Potassium 3.5 mEq/L (3.5-5.1); Protein, Total 8.2 g/dL (6.4-8.2)
--- NOTE | 2023-02-11 17:02 | RAD REPORT ---
EXAM DESCRIPTION: CT - Abdomen Pelvis W Contrast - 02/11/2023 3:58 pm CLINICAL HISTORY: ABD PAIN COMPARISON: No comparisons TECHNIQUE: Thin cut axial CT imaging of the abdomen and pelvis was performed following intravenous a dministration of 100 mL Isovue 300. Multiplanar reformats were generated and reviewed. All CT scans are performed using dose optimization technique as appropriate and may include automated exposure control or mA/KV adjustment according to patient size. FINDINGS: No suspicious findings in the lung bases. The liver, spleen, adrenal glands, and pancreas show no suspicious findings. Gallbladder was surgical ly removed. Symmetric renal function is seen with no hydronephrosis or suspicious renal mass. No dilated bowel loops. Long segment of wall thickening and submucosal edema along the nondistended m id ascending through distal transverse colon. Relatively short segment of proximal jejunal mild fluid distention with short-segment air-fluid level. . No free air, free fluid or inflammatory stranding. No hernia, mass or bulky lymphadenopathy. The urinary bladder is without significant finding. No suspicious bony findings. IMPRESSION: Long segment of wall thickening and submucosal edema along the nondistended mid ascendin g through distal transverse colon. Although evaluation is limited by suboptimal distention, this rais es concern for segmental colitis. Short segment of fluid distention with air-fluid levels along the proximal jejunum, may represent seq uelae of enteritis or mild ileus. Status post cholecystectomy.
--- NOTE | 2023-02-11 17:17 | EDPHYS ---
Physician Documentation [facility] Name: Zach Meraz Age: 22 yrs Sex: Female : 2000 Arrival Date: 02/11/2023 Time: 13:36 Bed 9 Private MD: ED Physician Rosemary Mendez HPI: 02/11 15:11 This 22 yrs old Female presents to ER via Ambulatory with complaints of kb Abdominal Cramping, Abdominal Pain, Nausea/Vomiting. 15:11 The patient presents to the emergency department with nausea, vomiting, diarrhea, kb abdominal pain. Onset: The symptoms/episode began/occurred last night. Possible causes: unknown. The patient has not recently seen a physician. 15:12 The symptoms are aggravated by nothing. The symptoms are alleviated by nothing. kb Associated signs and symptoms: Pertinent positives: abdominal pain, diarrhea, nausea, vomiting, Pertinent negatives: fever. Severity of symptoms: At their worst the symptoms were mild moderate in the emergency department the symptoms are unchanged. The patient has not experienced similar symptoms in the past. 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 - Social history:: Smoking status: Patient reports the use of cigarette tobacco products, denies chronic smoking, but will smoke occasionally. ROS: 15:12 Constitutional: Negative for fever, chills, and weight loss, kb 15:12 Abdomen/GI: Positive for abdominal pain, nausea, vomiting, and diarrhea, 15:12 All other systems are negative, Exam: 15:12 Constitutional: This is a well developed, well nourished patient who is awake, alert, kb and in no acute distress. Head/Face: Normocephalic, atraumatic. ENT: Moist Mucous membranes Cardiovascular: Regular rate Respiratory: Respirations even and unlabored. No increased work of breathing. Talking in full sentences Skin: Warm, dry with normal turgor. Normal color. MS/ Extremity: Pulses equal, no cyanosis. Neurovascular intact. Full, normal range of motion. Neuro: Awake and alert, GCS 15, oriented to person, place, time, and situation. Moves all extremities. Normal gait. 15:12 Abdomen/GI: Inspection: abdomen appears normal, Bowel sounds: normal, Palpation: soft, in all quadrants, mild abdominal tenderness, in the right upper quadrant, Vital Signs: 13:45 BP 121 / 75; Pulse 85; Resp 16; Temp 98.4(O); Pulse Ox 100% on R/A; Weight 88 kg; mb9 Height 5 ft. 3 in. ; Pain 0/10; 17:25 Temp 98.8; Pulse Ox 100% ; ap3 13:45 Body Mass Index 34.37 (88.00 kg, 160.02 cm) mb9 13:45 Pain Scale: Adult mb9 MDM: 13:41 Patient medically screened. kb 15:12 Differential diagnosis: Nonspecific abd pain, diverticulitis, viral gastroenteritis, kb uti. Data reviewed: vital signs, nurses notes. 17:16 Counseling: I had a detailed discussion with the patient and/or guardian regarding the kb historical points, exam findings, and any diagnostic results supporting the discharge/admit diagnosis, lab results, radiology results, the need for outpatient follow up, a family practitioner, to return to the emergency department if symptoms worsen or persist or if there are any questions or concerns that arise at home. 02/11 13:50 Order name: CBC with Diff; Complete Time: 15:26 kb 02/11 13:50 Order name: CMP; Complete Time: 15:26 kb 02/11 13:50 Order name: Lipase; Complete Time: 15:26 kb 02/11 13:50 Order name: Test, Urine; Complete Time: 14:24 kb 02/11 13:50 Order name: Urinalysis w/ reflexes; Complete Time: 14:24 kb 02/11 15:29 Order name: CT Abd/Pelvis - IV Contrast Only; Complete Time: 17:11 kb 02/11 13:50 Order name: IV Saline Lock; Complete Time: 15:02 kb 02/11 13:50 Order name: Labs collected and sent; Complete Time: 15:02 kb Administered Medications: 15:17 Drug: NS 0.9% IV 1000 ml IV at 1000 ml once Route: IV; Rate: 1000 ml; Site: right wrist;ap3 17:25 Follow up: IV Status: Completed infusion ap3 17:25 Not Given (Patient Refused): ondansetron 4 mg IVP once; over 2 minutes ap3 Disposition Summary: 02/11/23 17:16 Discharge Ordered Notes: Location: Home kb Condition: Stable kb Diagnosis - Infectious gastroenteritis and colitis, unspecified kb Followup: kb - With: Emergency Department - When: As needed - Reason: Worsening of condition Followup: kb - With: Private Physician - When: 2 - 3 days - Reason: Recheck today's complaints, Continuance of care, Re-evaluation by your physician Discharge Instructions: - Discharge Summary Sheet kb - Food Choices to Help Relieve Diarrhea, Adult kb - Colitis kb Forms: - Medication Reconciliation Form kb - Thank You Letter kb - Antibiotic Education kb - Prescription Opioid Use kb - Patient Portal Instructions kb - Leadership Thank You Letter kb Prescriptions: - Cipro 500 mg Oral Tablet - take 1 tablet ORAL route every 12 hours for 10 days; 20 tablet; Refills: 0, kb Product Selection Permitted - Flagyl 500 mg Oral Tablet - take 1 tablet ORAL route every 8 hours for 10 days; 30 tablet; Refills: 0, kb Product Selection Permitted - Zofran 4 mg Oral tablet - take 1 tablet ORAL route every 6 hours As needed; 12 tablet; Refills: 0, kb Product Selection Permitted Signatures: Dispatcher [employer] Shira Damon, CLAUDINE-C GRADUATION COACH-Gena Ybarra, RN RN ap3 Veena Baez RN RN mb9
--- NOTE | 2023-02-11 17:17 | ER ---
Nurse's Notes [facility] Name: Zach Meraz Age: 22 yrs Sex: Female : 2000 Arrival Date: 02/11/2023 Time: 13:36 Bed 9 Private MD: Diagnosis: Infectious gastroenteritis and colitis, unspecified Presentation: 02/11 13:45 Chief complaint: Patient states: "Since last night, I'm having diarrhea, vomiting, mb9 cramps/lower abdominal pain and nausea. I have irregular periods but can't remember the last time I had my period. I feel like I'm having contractions. I don't have vaginal bleeding". Coronavirus screen: Vaccine status: Patient reports receiving the 2nd dose of the covid vaccine. Ebola Screen: No symptoms or risks identified at this time. Initial Sepsis Screen: Does the patient meet any 2 criteria? No. Patient's initial sepsis screen is negative. Does the patient have a suspected source of infection? No. Patient's initial sepsis screen is negative. Risk Assessment: Do you want to hurt yourself or someone else? Patient reports no desire to harm self or others. Onset of symptoms was 2022. 13:45 Method Of Arrival: Ambulatory mb9 13:45 Acuity: JESSICA 3 mb9 Triage Assessment: 13:48 General: Appears in no apparent distress. Behavior is cooperative. Pain: Complains of mb9 pain in abdomen Quality of pain is described as crampy, Pain began 1 day ago. EENT: No signs and/or symptoms were reported regarding the EENT system. Neuro: [place]zco Agitation-Sedation Scale (RASS): 0 - Alert and Calm Level of Consciousness is awake, alert, obeys commands, Oriented to person, place, time, situation, Appropriate for age. Cardiovascular: Patient's skin is warm and dry. Respiratory: Airway is patent Respiratory effort is even, unlabored, Respiratory pattern is regular, symmetrical. GI: Abdomen is round non-distended, Reports cramping, diarrhea, nausea, vomiting. : Denies burning with urination, vaginal bleeding. Derm: No signs and/or symptoms reported regarding the dermatologic system. Musculoskeletal: Range of motion: intact in all extremities. 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 - Social history:: Smoking status: Patient reports the use of cigarette tobacco products, denies chronic smoking, but will smoke occasionally. Screenin:03 [facility] ED Fall Risk Assessment (Adult) History of falling in the last 3 months, ap3 including since admission No falls in past 3 months (0 pts). Abuse screen: Denies threats or abuse. Nutritional screening: No deficits noted. Tuberculosis screening: No symptoms or risk factors identified. Assessment: 17:25 GI: Abd is soft. ap3 Vital Signs: 13:45 BP 121 / 75; Pulse 85; Resp 16; Temp 98.4(O); Pulse Ox 100% on R/A; Weight 88 kg; mb9 Height 5 ft. 3 in. ; Pain 0/10; 17:25 Temp 98.8; Pulse Ox 100% ; ap3 13:45 Body Mass Index 34.37 (88.00 kg, 160.02 cm) mb9 13:45 Pain Scale: Adult mb9 ED Course: 13:40 Patient arrived in ED. mg5 13:41 Shira Power FNP-C [facility]. kb 13:41 Rosemary Mendez MD is Attending Physician. kb 13:47 Triage completed. mb9 13:47 Arm band placed on. mb9 13:56 Test, Urine Sent. mb9 13:56 Urinalysis w/ reflexes Sent. mb9 15:03 Gena Velez, RN is Primary Nurse. ap3 15:03 Patient has correct armband on for positive identification. Bed in low position. Call ap3 light in reach. Side rails up X 1. Pulse ox on. NIBP on. Door closed. Noise minimized. 15:03 Inserted saline lock: 22 gauge in left wrist, using aseptic technique. ap3 15:03 No provider procedures requiring assistance completed. ap3 15:[address] nj 15:57 CT completed. Patient tolerated procedure well. Patient moved back from CT. nj 16:00 CT Abd/Pelvis - IV Contrast Only In Process Unspecified. EDMS 17:26 Provided Education on: discharge instructions. ap3 17:26 IV discontinued, intact, bleeding controlled, No redness/swelling at site. Pressure ap3 dressing applied. Administered Medications: 15:17 Drug: NS 0.9% IV 1000 ml IV at 1000 ml once Route: IV; Rate: 1000 ml; Site: right wrist;ap3 17:25 Follow up: IV Status: Completed infusion ap3 17:25 Not Given (Patient Refused): ondansetron 4 mg IVP once; over 2 minutes ap3 Medication: 15:03 VIS not applicable for this client. ap3 Outcome: 17:16 Discharge ordered by MD. perez 17:25 Discharged to home ambulatory, ap3 17:25 Condition: good 17:25 Discharge instructions given to patient, Instructed on discharge instructions, follow up and referral plans. medication usage, Demonstrated understanding of instructions, follow-up care, medications, Prescriptions given X 3, 17:26 Patient left the ED. ap3 Signatures: Dispatcher [employer] EDMS Shira Power, CLAUDINE-C LOCOMOTIVE ELECTRICIAN-Orestes Wu Amanda RN RN ap3 Veena Baez RN RN mb9 Colette Mi mg5
[2023-02-11 19:57] VITALS: BP 121/75; O2SAT 100
[2023-02-11 20:16] VITALS: TEMP 98.8
== END 2023-02-11 17:26 | disposition home or self-care (01) ==
LOC: ER 13:36
DX: A09 Infectious gastroenteritis and colitis, unspecified (principal); F17.210 Nicotine dependence, cigarettes, uncomplicated
CPT/HCPCS: 36415; 74177; 80053; 81001; 81025; 83690; 85025; J7030; Q9967